=== PATIENT | female | born 1975 | race African-American/Black ===

== ENCOUNTER → 2017-07-04 | Outpatient (CLI) | payer MEDICAID | LOC: FIMAGING 20:33 | PROVIDERS: ATTEND Physician Assistant | DX: J40 Bronchitis, not specified as acute or chronic (principal) ==

== ENCOUNTER → 2017-07-04 | Outpatient (CLI) | payer MEDICAID | LOC: FIMAGING 16:28 | PROVIDERS: ATTEND Physician Assistant | DX: Z12.31 Encounter for screening mammogram for malignant neoplasm of breast (principal) ==

== ENCOUNTER 2017-12-17 | Emergency (ER) | payer MEDICAID ==
[2017-12-17 00:06] VITALS: RESP 16
--- NOTE | 2017-12-17 00:09 | EDPHY ---
H & P Stated Complaint: lower back pain Time Seen by Provider: 12/17/17 00:03 HPI/ROS: HPI CHIEF COMPLAINT: Low back pain HISTORY OF PRESENT ILLNESS: This patient very pleasant 42-year-old female recently diagnosed with hypertension, she recently saw her primary care doctor for 2-3 weeks of lower back pain. Her primary care doctor recommend that she undergoes physical therapy for back pain. Also recommend at some point she get an MRI of her lumbar spine. She come pains of 2-3 weeks of lower back pain. 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 She does not remember injuring her back. She states the pain is low lumbar region it comes out paravertebral both sides of her lumbar region. She denies any saddle anesthesia. Denies leg weakness. Denies bowel or bladder incontinence or retention. Denies fever. Denies direct trauma to her back. She does report at times that she gets some tingling in her right leg. Denies sharp stabbing pain. Patient denies chest pain or shortness of breath. She denies abdominal pain. Patient states that she has 6/10 lumbar back pain at this time. Decided come the emergency room as it has been getting worse. Denies being . Past Medical History: Hypertension newly diagnosed started on HCTZ. Past Surgical History: Denies recent surgery Social History: Denies drugs alcohol tobacco. 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 Family History: Noncontributory ROS REVIEW OF SYSTEMS: A comprehensive 10 point review of systems is otherwise negative aside from elements mentioned in the history of present illness. Exam Constitutional appears well nontoxic no acute distress, triage nursing summary reviewed, vital signs reviewed, awake/alert. Eyes normal conjunctivae and sclera, EOMI, PERRLA. HENT normal inspection, atraumatic, moist mucus membranes, no epistaxis, neck supple/ no meningismus, no raccoon eyes. Respiratory clear to auscultation bilaterally, normal breath sounds, no respiratory distress, no wheezing. Cardiovascular rate normal, regular rhythm, no murmur, no edema, distal pulses normal. Gastrointestinal soft, non-tender, no rebound, no guarding, normal bowel sounds, no distension, no pulsatile mass. Genitourinary no CVA tenderness. Musculoskeletal very mild tender palpation lumbar region, full range of motion , no calf swelling, no tenderness of extremities, no meningismus, good pulses, neurovascularly intact. Skin pink, warm, & dry, no rash, skin atraumatic. Neurologic awake, alert and oriented x 3, AAOx3, moves all 4 extremities equally, motor intact, sensory intact, CN II-XII intact, normal cerebellar, normal vision, normal speech. Psychiatric normal mood/affect. Heme/Lymph/Immune no lymphadenopathy. Differential Diagnosis: Includes but is not limited to in a particular order compression fracture, disc herniation, nerve root compression, annular tear, sciatica, doubt spinal epidural abscess Medical Decision Making: Plan for this patient IV establishment blood draw, check CBC, x-ray lumbar spine to rule out significant malalignment or significant compression fracture. IV Toradol for pain control. Re-evaluation: X-ray lumbar spine reviewed. I do not appreciate any significant malalignment or compression fracture. Image interpreted by myself. Patient blood work, urinalysis reviewed. I have ordered her 15 mg IV Toradol for pain control. I do recommend she follows up with her primary care doctor. Obtained outpatient MRI imaging. No indication for emergency MRI imaging at this time. She has no red flags and no indication for cauda equina or spinal epidural abscess. Most likely this is nerve root compression from a disc herniation. Recommend icing her back. Anti-inflammatory pain meds for mild pain [place] for severe pain. Return precautions discussed with the patient she understands. Source: Patient - Personal History LMP (Females 10-55): IUD In Place Current Tetanus/Diphtheria Vaccine: Yes Current Tetanus Diphtheria and Acellular Pertussis (TDAP): Yes - Medical/Surgical History Hx Asthma: No Hx Chronic Respiratory Disease: No Hx Diabetes: No Hx Cardiac Disease: No Hx Renal Disease: No Hx Cirrhosis: No Hx Alcoholism: No Hx HIV/AIDS: No Hx Splenectomy or Spleen Trauma: No Other PMH: Denies per pt - Social History Smoking Status: Current every day smoker Constitutional: Initial Vital Signs Temperature (C) 36.6 C 12/17/17 00:03 Heart Rate 92 12/17/17 00:03 Respiratory Rate 16 12/17/17 00:03 Blood Pressure 143/105 H 12/17/17 00:03 O2 Sat (%) 96 12/17/17 00:03 O2 Delivery Mode Room Air Allergies/Adverse Reactions: No Known Allergies Allergy (Verified 12/17/17 00:06) Home Medications: Medication Instructions Recorded Hydrochlorothiazide 12/17/17 Hydrocodone/APAP 5/325 [[place] 1 - 2 tab PO Q4H PRN #10 tab 12/17/17 5/325] Mobic 15 mg 12/17/17 Wellbutrin 100mg (*) 12/17/17 traMADol 12/17/17 Medical Decision Making - Data Points Laboratory Results: Laboratory Results 12/17/17 00:30 12/17/17 00:30 12/17/17 12/17/17 12/17/17 00:30 00:30 00:30 WBC RBC Hgb Hct MCV MCH MCHC RDW Plt Count MPV Neut % (Auto) Lymph % (Auto) [place] % (Auto) Eos % (Auto) Baso % (Auto) Nucleat RBC Rel Count Absolute Neuts (auto) Absolute Lymphs (auto) Absolute Monos (auto) Absolute Eos (auto) Absolute Basos (auto) Absolute Nucleated RBC Immature Gran % Immature Gran # Sodium 139 mEq/L mEq/L (135-145) Potassium 3.8 mEq/L mEq/L (3.5-5.2) Chloride 103 mEq/L mEq/L (97-110) Carbon Dioxide 23 mEq/l mEq/l (22-31) Anion Gap 13 mEq/L mEq/L (8-16) BUN 14 mg/dL mg/dL (7-23) Creatinine 0.7 mg/dL mg/dL (0.6-1.0) Estimated GFR > 60 Glucose 114 mg/dL H mg/dL (70-100) Calcium 10.0 mg/dL mg/dL (8.5-10.4) Beta HCG, Qual NEGATIVE Urine Color YELLOW Urine Appearance HAZY Urine pH 5.0 (5.0-7.5) Ur Specific [place] 1.029 (1.002-1.030) Urine Protein NEGATIVE (NEGATIVE) Urine Ketones NEGATIVE (NEGATIVE) Urine Blood NEGATIVE (NEGATIVE) Urine Nitrate NEGATIVE (NEGATIVE) Urine Bilirubin NEGATIVE (NEGATIVE) Urine Urobilinogen NEGATIVE EU EU (0.2-1.0) Ur Leukocyte Esterase NEGATIVE (NEGATIVE) Urine Glucose NEGATIVE (NEGATIVE) 12/17/17 00:30 WBC 13.04 10^3/uL H 10^3/uL (3.80-9.50) RBC 4.62 10^6/uL 10^6/uL (4.18-5.33) Hgb 14.9 g/dL g/dL (12.6-16.3) Hct 41.5 % % (38.0-47.0) MCV 89.8 fL fL (81.5-99.8) MCH 32.3 pg pg (27.9-34.1) MCHC 35.9 g/dL g/dL (32.4-36.7) RDW 12.9 % % (11.5-15.2) Plt Count 199 10^3/uL 10^3/uL (150-400) MPV 11.3 fL fL (8.7-11.7) Neut % (Auto) 63.9 % % (39.3-74.2) Lymph % (Auto) 26.5 % % (15.0-45.0) [place] % (Auto) 6.4 % % (4.5-13.0) Eos % (Auto) 2.5 % % (0.6-7.6) Baso % (Auto) 0.4 % % (0.3-1.7) Nucleat RBC Rel Count 0.0 % % (0.0-0.2) Absolute Neuts (auto) 8.34 10^3/uL H 10^3/uL (1.70-6.50) Absolute Lymphs (auto) 3.45 10^3/uL H 10^3/uL (1.00-3.00) Absolute Monos (auto) 0.84 10^3/uL H 10^3/uL (0.30-0.80) Absolute Eos (auto) 0.32 10^3/uL 10^3/uL (0.03-0.40) Absolute Basos (auto) 0.05 10^3/uL 10^3/uL (0.02-0.10) Absolute Nucleated RBC 0.00 10^3/uL 10^3/uL (0-0.01) Immature Gran % 0.3 % % (0.0-1.1) Immature Gran # 0.04 10^3/uL 10^3/uL (0.00-0.10) Sodium Potassium Chloride Carbon Dioxide Anion Gap BUN Creatinine Estimated GFR Glucose Calcium Beta HCG, Qual Urine Color Urine Appearance Urine pH Ur Specific [place] Urine Protein Urine Ketones Urine Blood Urine Nitrate Urine Bilirubin Urine Urobilinogen Ur Leukocyte Esterase Urine Glucose Medications Given: Discontinued Medications Sodium Chloride (Ns) 1,000 mls @ 0 mls/hr IV ONCE ONE PRN Reason: Wide Open Stop: 12/17/17 00:21 Last Admin: 12/17/17 00:57 Dose: 1,000 mls Ketorolac Tromethamine (Toradol) 15 mg IVP EDNOW ONE Stop: 12/17/17 01:02 Last Admin: 12/17/17 01:04 Dose: 15 mg Departure - Departure Disposition: Home, Routine, Self-Care Clinical Impression: Low back pain Qualifiers: Chronicity: acute Back pain laterality: unspecified Sciatica presence: without sciatica Qualified Code(s): M54.5 - Low back pain Condition: Good Instructions: Low Back Strain (ED), Back Pain (ED) Additional Instructions: 1. Return emergency room if you have worsening back pain. 2. Follow up with her primary care doctor. 3. I do recommend you at some point obtain an MRI of her lumbar spine. 4. [place] for severe pain. Referrals: CECILIO QUEEN [Other] - As per Instructions Prescriptions: Hydrocodone/APAP 5/325 [[place] 5/325] 1 - 2 tab PO Q4H PRN #10 tab PRN Reason: Pain, Moderate
[2017-12-17] MEDS ORDERED: NS 1,000 ML IV ONE (00:20)
[2017-12-17 00:56] LABS: PLATELET COUNT 199 10^3/uL (150-400)
[2017-12-17] MEDS ORDERED: KETOROLAC 15 MG/1 ML SDV IVP ONE (01:01)
[2017-12-17 01:24] VITALS: BP 148/84; PULSE 87; TEMP 98.2; O2SAT 95
== END 2017-12-17 01:27 | disposition home or self-care (01) ==
DX: M54.5 Low back pain (principal); F17.200 Nicotine dependence, unspecified, uncomplicated
CPT/HCPCS: 96374; J1885